=== PATIENT | male | born 1985 | race Caucasian/White ===

== ENCOUNTER 2022-05-04 22:14 | Emergency (ER) | payer SELFPAY ==
[2022-05-04 22:33] VITALS: BP 139/92; PULSE 93; RESP 18; TEMP 37.1; O2SAT 99; BMI 20.9
--- NOTE | 2022-05-04 22:36 | XRR_ITS ---
PROCEDURE INFORMATION: Exam: XR Chest Exam date and time: 05/04/2022 10:43 PM Age: 36 years old Clinical indication: Pain; Angina pectoris; Additional info: Rib pain TECHNIQUE: Imaging protocol: Radiologic exam of the chest. Views: 1 view. COMPARISON: No relevant prior studies available. FINDINGS: Lungs: Lungs are clear bilaterally. Pleural spaces: No pleural effusion. No pneumothorax. Heart/Mediastinum: The cardiac silhouette and mediastinal contours are unremarkable. Bones/joints: Unremarkable for age. No acute fracture. XR/XR chest 1V portable [id number] IMPRESSION: Negative chest radiograph.
[2022-05-04] MEDS: naproxen 500 mg Tablet PO (23:46)
[2022-05-04] MEDS: cyclobenzaprine 10 mg Tablet PO (23:47)
--- NOTE | 2022-05-05 00:19 | ED_ITS ---
HPI - General Adult General: Chief complaint: General Medical Stated complaint: rib pain Time Seen by Provider: 05/04/22 22:59 Source: patient Mode of arrival: ambulatory Limitations: no limitations History of Present Illness: Patient presents to the emergency department today for evaluation treatment of right lower anterior and lateral rib pain. Patient states that he was at the [employer] when he was sparring with a new partner. He indicated the other participant was much larger than him and a couple of times fell onto the patient's right ribs while on the ground. Patient denies hearing any crunching or popping but does believe he may have injured some ribs. He feels the shape of his ribs on the right side are different and when he started having aching in his back, decided to come in for evaluation. He states he is not out of breath and has not had any coughing. He does indicate increased discomfort with breathing to that area of his ribs. Review of Systems General: Reports: 10 or more systems reviewed and unremarkable except in HPI and below Musc: Reports: back pain and other (right anterior/lateral/inferior rib pain); Denies: neck pain, joint pain, joint swelling or joint stiffness Physical Exam Const: COMMON NORMALS: no acute distress, patient oriented x3 and alert HENMT: COMMON NORMALS: normocephalic, atraumatic and hearing grossly normal bilaterally HEAD & SCALP: normocephalic and atraumatic Eye: COMMON NORMALS: Equal, round and reactive pupils present, EOMs intact bilaterally and conjunctivae normal CONJUNCTIVA: Yes conjunctivae normal PUPIL: Yes Equal, round and reactive pupils present Neck/C-Spine: COMMON NORMALS: full ROM and no JVD Lymph: LYMPHATIC: no lymphadenopathy noted Chest: OTHER: Patient is tender along the inferior right anterior/lateral ribs-worse on palpation. Patient with painful inspiration but no cough. Resp: COMMON NORMALS: normal respiratory effort, No retractions and No use of accessory muscles Cardio: COMMON NORMALS: no JVD and regular rate RATE: regular rate Extremity: NARRATIVE EXTREMITY EXAM: Full range of motion to the upper and lower extremities. Patient is independently ambulatory and weightbearing. Neuro: COMMON NORMALS: patient oriented x3 SENSORIUM/ORIENTATION: Yes alert Psych: COMMON NORMALS: mental status grossly normal, Normal thought process present, cooperative and normal affect THOUGHT PROCESS: Normal thought process present Skin: COMMON NORMALS: no rashes or lesions noted and turgor normal GENERAL SKIN EXAM: no rashes or lesions noted and turgor normal Course Vital Signs: Vital signs: Vital Signs Temperature 98.7 F 05/04/22 22:33 Pulse Rate 93 05/04/22 22:33 Respiratory Rate 18 05/04/22 22:33 Blood Pressure 139/92 05/04/22 22:33 Pulse Oximetry 99 05/04/22 22:33 Oxygen Delivery Me thod 05/04/22 22:33 MDM - General Adult Medical Decision Making Patient presents today for evaluation and treatment of right rib pain. Patient received an AP chest x-ray from triage and I explained to him that if we needed to further evaluate his ribs we would need to get a rib series. However, would not change the treatment course for him whether there was a fracture or not but, could indicate the length of time patient could expect to be uncomfortable and need to avoid certain activities. Patient does not seem interested in pursuing any further imaging and we did discuss treatment. Patient was given medication here in the emergency department with a prescription for other medication sent to the pharmacy on his behalf to be picked up and continued in the morning for the next several days. I did warn him that he may be extremely tender and sore as rib contusions and even rib fractures can be sore for a couple of weeks or longer. Patient indicates he needs a note for his [employer] to get out of having to pay his dues while he is recovering. Note provided indicating his injury may require several weeks of treatment until he is back to normal and I recommended he be seen and reevaluated for any acute worsening in his condition. Differential Diagnosis Rib fracture, rib contusion, intercostal strain, rib dislocation, pulmonary contusion Lab Data Radiology Impressions Chest X-Ray 05/04/22 22:36 IMPRESSION: Negative chest radiograph. Discharge Plan Discharge Patient Disposition: Home Clinical Impression: Contusion of rib on right side, Intercostal muscle strain Condition: Stable Prescriptions: New cyclobenzaprine 10 mg tablet 10 mg PO TID Qty: 14 0RF naproxen 500 mg tablet 500 mg PO BID PRN (Reason: pain) Qty: 20 0RF lidocaine 4 % adhesive patch,medicated 1 patch topical DAILY Qty: 10 0RF Rx Instructions: may leave on for up to 12 hrs Discharge Orders: Discharge ED (Routine); Ordered 05/04/22 Ordered By: Angela Gould Referrals: Jaret Mendez MD [Family Provider] - Discharge Activity: Limit activity as instructed Patient Instructions: Rib Contusion (ED) Activity Restrictions/Additional Instructions: The x-ray today showed no signs of any acute, obvious abnormalities to the ribs or underlying lung tissue however, as we discussed, sometimes rib fractures are not visible on an AP film and require further evaluation. Still, treatment for rib fractures are not any different than treatments for general rib injuries and therefore, would not change any of my recommendations. You do need to take it easy for quite some time. As discussed, rib injuries often take a long time to heal and are often very uncomfortable due to the inability to immobilize the ribs to allow them to heal. I prescribed some medications to help with inflammation and pain but do not recommend you doing any type of rib binding or wrapping at home as this has not been shown to help with recovery and can actually cause worsening issues with underlying lung tissue. I recommend applying a heating pad or an ice pack-whichever feels better, for 15 to 20 minutes, multiple times throughout the day for the next several days to help with your discomfort as well. Stand Alone Forms: Work/School Release Coding Level of Care Code ED Eviscerator for Breanne Baez
== END 2022-05-05 00:24 | disposition home or self-care (01) ==
PROVIDERS: Emergency Provider Physician Assistant
DX: S20.211A Contusion of right front wall of thorax, initial encounter (principal); S29.011A Strain of muscle and tendon of front wall of thorax, initial encounter; W50.0XXA Accidental hit or strike by another person, initial encounter; Y93.75 Activity, martial arts
CPT/HCPCS: 71045; 99284